=== PATIENT | female | born 1980 | race Caucasian/White ===

== ENCOUNTER 2016-12-27 07:31 | Emergency (ER) | payer OTHER ==
[2016-12-27 08:56] VITALS: BP 115/74
== END 2016-12-27 08:54 | disposition home or self-care (01) ==
LOC: ED 07:31
DX: R10.9 Unspecified abdominal pain (principal); R19.7 Diarrhea, unspecified

== ENCOUNTER 2017-04-03 20:02 | Emergency (ER) | payer OTHER ==
[2017-04-03 23:18] VITALS: BP 122/71
== END 2017-04-03 23:18 | disposition home or self-care (01) ==
LOC: ED 20:02
DX: B37.3 Candidiasis of vulva and vagina (principal)